=== PATIENT | female | born 1955 | race Caucasian/White ===

== ENCOUNTER 2018-10-22 17:13 | Inpatient (IN) | payer OTHER ==
[2018-10-22] MEDS ORDERED: IOPAMIDOL (ISOVUE 370) 100 ML BTL IV ONE (17:22)
[2018-10-22] MEDS ORDERED: PROPOFOL/EMULSION 1,000 MG/100 ML BOTTLE IV ONE ×2 (17:22→21:13)
[2018-10-22] MEDS ORDERED: POTASSIUM Cl (KCl) 10 MEQ/100 ML BAG IV ONE (17:23)
[2018-10-22] MEDS ORDERED: MANNITOL 20% 100 GM/500 ML BAG IV ONE ×3 (17:33→18:18)
[2018-10-22 17:34] LABS: PLATELET COUNT 241 10^3/uL (150-400)
--- NOTE | 2018-10-22 17:43 | EDPHY ---
H & P Time Seen by Provider: 10/22/18 17:26 HPI/ROS: CHIEF COMPLAINT: Altered mental status HISTORY OF PRESENT ILLNESS: Patient is a 62-year-old female brought in the emergency department as a stroke alert. Per report, the patient was last talked to on the phone 11:45 a.m.. When the fikevine returned home at 1515, he found the patient unresponsive in the bathroom. 911 was called. EMS found the patient unresponsive with initial blood pressure in the "160s/100". O2 saturation was "90s". Patient was given Narcan with no change in symptoms. Patient was noted to have asymmetric pupils with dilated pupil on the right. The patient recently had a cardiac stent placed in September. She had been recovering well from that procedure. She was placed on Plavix. She has been having numerous bruises all over body. Patient's fiancee denies that she drinks alcohol uses any drugs. REVIEW OF SYSTEMS: Unable to obtain due the patient's mental status Past medical history: Includes coronary artery disease with stent placement Social history: Patient does not smoke, use drugs or alcohol. Physical Exam: Vitals noted GENERAL: Unresponsive. NPA and O PA present. HEENT: The patient has a dilated pupil on the right. This is unresponsive. Patient has blood coming out of the NPA.. NECK: Normal, supple. RESPIRATORY: Significantly coarse breath sounds on the right. No wheezing. No rales. No rhonchi.. CVS: Bradycardia into the 50s, no rubs, murmurs, or gallops. ABDOMEN: Soft, nontender, nondistended, no organomegaly. BACK: Normal to inspection, no CVA tenderness. SKIN: Normal color, no rash, warm, dry. No pallor. Patient has numerous bruises of different ages over her lower extremities and abdomen. EXTREMITIES: No pedal edema, no joint swelling. NEURO/PSYCH: Unresponsive. Patient is not moving any extremity to painful stimulus. Constitutional: Initial Vital Signs Heart Rate 81 10/22/18 17:45 Respiratory Rate 18 10/22/18 17:45 O2 Sat (%) 100 10/22/18 17:45 O2 Delivery Mode Ventilator O2 (L/minute) 100 Allergies/Adverse Reactions: No Known Allergies Allergy (Unverified 10/22/18 17:17) Home Medications: Medication Instructions Recorded Aspirin 10/22/18 Atorvastatin Calcium 10/22/18 Effient 10/22/18 Metoprolol Succinate 10/22/18 Nitroglycerin 10/22/18 Plavix 10/22/18 Medical Decision Making - Diagnostics Imaging Results: Imaging Impressions Head CT 10/22/18 17:18 Impression: Large right frontoparietal intraparenchymal hemorrhage with 1.8 cm right to left midline shift. Findings discussed with Camille Orosco MD on October 22, 2018 at 5:35 p.m. Chest X-Ray 10/22/18 17:27 Impression: Endotracheal and NG tubes in good position with no acute findings. Procedures: RSI: Indication for the procedure was altered mental status. The patient was preoxygenated with 100% oxygen by face mask. The patient was sedated with etomidate and paralyzed with succinylcholine. The patient was orally endotracheally intubated under video laryngoscopy with a 7.0 ETT. Tracheal intubation was confirmed with misting on the tube; breath sounds were auscultated equally bilaterally; appropriate color change with [place] [employer] CO2 detector, capnography waveform is appropriate, oxygen saturation after procedure is [95 ]. Chest X-ray shows ETT in good position. The procedure was performed by myself. ED Course/Re-evaluation: In the emergency department I met EMS on arrival. I took report from the carpenter refrigerator. The patient was brought into room 2 because she was not stable. After my initial evaluation I felt the patient needed airway protection. Blood was coming out of the NPA. The monitor was having difficulty assessing O2 saturation. The probe was switched to her ear and subsequently to other hand. Patient was intubated with a 7.0 ET tube by video laryngoscopy without complication. The patient was given Versed 1 mg IV and fentanyl 100 mcg IV for sedation and pain control. The patient was placed on the ventilator. Patient's i-STAT was notable for low potassium. Potassium supplementation was given IV. Please refer the nursing note. Nursing staff was instructed to give potassium via OG when placed. Patient was taking to CT scanner. I went with the patient. While being transferred to the table the patient was noted to become bradycardic. With the patient's dilated pupil and presentation I was concerned with increased intracranial pressure. Mannitol 100 g IV was ordered and started the in the CT scanner. While mannitol was being obtained the patient was given atropine 0.5 mg IV. The patient has a large intracranial hemorrhage noted on CT imaging. Please refer the radiologist's report. Dr. Baxter was in the radiology suite with me. Head of bed was raised to 30 degrees. The patient was brought back to the emergency department. NG tube was placed. Schofiled catheter was placed. ABG was obtained. Platelets were ordered. Patient was placed on a propofol drip. Propofol drip was titrated. I discussed the case with Dr. Enrique. He did not want TXA at this time. 1804: Discussed case with Dr. Cao from the hospitalist service. 1824: I discussed the case with Dr. Enrique. He states he is taking the patient to the operating room Dr. Enrique requested 2 units of packed red blood cells be ordered for type and transfusion. He did not want a type and screen. I entered the order at his request. 18 30: Blood gas is still pending. I discussed this with the anesthesiologist. Differential Diagnosis: My differential includes but not limited to ischemic stroke, hemorrhagic stroke , dissection, aneurysm, electrolyte abnormality, sugar abnormality, drug overdose, subdural hematoma, epidural hematoma Critical Care Time: Patient required 45 min of critical care time. This was exclusive of any unbundled procedure. This was due the patient's presentation, altered mental status, time spent at the bedside, discussion with the family, consultation with Neurosurgery and Internal Medicine. Patient received platelets, propofol, and mannitol. - Data Points Laboratory Results: Laboratory Results 10/22/18 17:23 10/22/18 17:23 10/22/18 10/22/18 10/22/18 18:06 17:52 17:23 WBC RBC Hgb POC Hgb Hct POC Hct MCV MCH MCHC RDW Plt Count MPV Neut % (Auto) Lymph % (Auto) [place] % (Auto) Eos % (Auto) Baso % (Auto) Nucleat RBC Rel Count Absolute Neuts (auto) Absolute Lymphs (auto) Absolute Monos (auto) Absolute Eos (auto) Absolute Basos (auto) Absolute Nucleated RBC Immature Gran % Immature Gran # PT INR APTT Puncture Site Pending pCO2 Pending pO2 Pending Total CO2 Pending ABG pH Pending ABG HCO3 Pending ABG O2 Saturation Pending ABG Base Excess Pending POC Sodium Sodium 139 mEq/L mEq/L (135-145) POC Potassium Potassium 3.0 mEq/L L mEq/L (3.5-5.2) POC Chloride Chloride 106 mEq/L mEq/L (97-110) Carbon Dioxide 19 mEq/l L mEq/l (22-31) POC Total CO2 Anion Gap 14 mEq/L mEq/L (6-14) POC BUN BUN 15 mg/dL mg/dL (7-23) Creatinine 0.7 mg/dL mg/dL (0.6-1.0) POC Creatinine Estimated GFR > 60 Glucose 183 mg/dL H mg/dL (70-100) POC Glucose Calcium 9.0 mg/dL mg/dL (8.5-10.4) POC Troponin I Patient ABO/Rh O NEGATIVE Antibody Screen Pending Crossmatch IS Only See Detail Platelet Orders Status READY 10/22/18 10/22/18 10/22/18 17:23 17:23 17:21 WBC 10.32 10^3/uL H 10^3/uL (3.80-9.50) RBC 3.99 10^6/uL L 10^6/uL (4.18-5.33) Hgb 12.9 g/dL g/dL (12.6-16.3) POC Hgb 12.6 gm/dL gm/dL (12.6-16.3) Hct 38.4 % % (38.0-47.0) POC Hct 37 % L % (38-47) MCV 96.2 fL fL (81.5-99.8) MCH 32.3 pg pg (27.9-34.1) MCHC 33.6 g/dL g/dL (32.4-36.7) RDW 13.2 % % (11.5-15.2) Plt Count 241 10^3/uL 10^3/uL (150-400) MPV 9.5 fL fL (8.7-11.7) Neut % (Auto) 57.0 % % (39.3-74.2) Lymph % (Auto) 30.4 % % (15.0-45.0) [place] % (Auto) 8.4 % % (4.5-13.0) Eos % (Auto) 2.8 % % (0.6-7.6) Baso % (Auto) 1.0 % % (0.3-1.7) Nucleat RBC Rel Count 0.0 % % (0.0-0.2) Absolute Neuts (auto) 5.88 10^3/uL 10^3/uL (1.70-6.50) Absolute Lymphs (auto) 3.14 10^3/uL H 10^3/uL (1.00-3.00) Absolute Monos (auto) 0.87 10^3/uL H 10^3/uL (0.30-0.80) Absolute Eos (auto) 0.29 10^3/uL 10^3/uL (0.03-0.40) Absolute Basos (auto) 0.10 10^3/uL 10^3/uL (0.02-0.10) Absolute Nucleated RBC 0.00 10^3/uL 10^3/uL (0-0.01) Immature Gran % 0.4 % % (0.0-1.1) Immature Gran # 0.04 10^3/uL 10^3/uL (0.00-0.10) PT 12.5 SEC SEC (12.0-15.0) INR 0.97 (0.83-1.16) APTT 25.8 SEC SEC (23.0-38.0) Puncture Site pCO2 pO2 Total CO2 ABG pH ABG HCO3 ABG O2 Saturation ABG Base Excess POC Sodium 143 mEq/L mEq/L (135-145) Sodium POC Potassium 2.8 mEq/L L mEq/L (3.3-5.0) Potassium POC Chloride 106 mEq/L mEq/L (97-110) Chloride Carbon Dioxide POC Total CO2 21 mEq/L L mEq/L (22-31) Anion Gap POC BUN 15 mg/dL mg/dL (7-23) BUN Creatinine POC Creatinine 0.7 mg/dL mg/dL (0.6-1.0) Estimated GFR Glucose POC Glucose 197 mg/dL H mg/dL (70-100) Calcium POC Troponin I Patient ABO/Rh Antibody Screen Crossmatch IS Only Platelet Orders Status 10/22/18 17:18 WBC RBC Hgb POC Hgb Hct POC Hct MCV MCH MCHC RDW Plt Count MPV Neut % (Auto) Lymph % (Auto) [place] % (Auto) Eos % (Auto) Baso % (Auto) Nucleat RBC Rel Count Absolute Neuts (auto) Absolute Lymphs (auto) Absolute Monos (auto) Absolute Eos (auto) Absolute Basos (auto) Absolute Nucleated RBC Immature Gran % Immature Gran # PT INR APTT Puncture Site pCO2 pO2 Total CO2 ABG pH ABG HCO3 ABG O2 Saturation ABG Base Excess POC Sodium Sodium POC Potassium Potassium POC Chloride Chloride Carbon Dioxide POC Total CO2 Anion Gap POC BUN BUN Creatinine POC Creatinine Estimated GFR Glucose POC Glucose Calcium POC Troponin I 0.02 ng/mL ng/mL (0.00-0.08) Patient ABO/Rh Antibody Screen Crossmatch IS Only Platelet Orders Status Medications Given: Potassium Chloride (Potassium Cl 10 Meq (Premix)) 100 mls @ 100 mls/hr IV EDNOW ONE Stop: 10/22/18 19:02 Last Admin: 10/22/18 17:30 Dose: 100 mls Discontinued Medications Etomidate (Etomidate) 15 mg IVP EDNOW ONE Stop: 10/22/18 18:04 Last Admin: 10/22/18 17:15 Dose: 15 mg Fentanyl (Sublimaze) 100 mcg IVP EDNOW ONE Stop: 10/22/18 18:05 Last Admin: 10/22/18 17:30 Dose: 100 mcg Mannitol (Mannitol 20% (Premix)) 100 gm IV EDNOW ONE Stop: 10/22/18 17:38 Last Admin: 10/22/18 17:34 Dose: 100 gm Midazolam HCl (Versed) 1 mg IVP EDNOW ONE Stop: 10/22/18 18:05 Last Admin: 10/22/18 17:30 Dose: 1 mg Potassium Chloride (Potassium Chloride Oral Liquid) 20 meq PO EDNOW ONE Stop: 10/22/18 17:52 Last Admin: 10/22/18 18:01 Dose: 20 meq Succinylcholine Chloride (Quelicin) 100 mg IVP EDNOW ONE Stop: 10/22/18 18:04 Last Admin: 10/22/18 17:18 Dose: 100 mg Point of Care Test Results: Chemistry 10/22/18 10/22/18 17:21 17:18 POC Sodium 143 mEq/L mEq/L (135-145) POC Potassium 2.8 mEq/L L mEq/L (3.3-5.0) POC Chloride 106 mEq/L mEq/L (97-110) POC Total CO2 21 mEq/L L mEq/L (22-31) POC BUN 15 mg/dL mg/dL (7-23) POC Creatinine 0.7 mg/dL mg/dL (0.6-1.0) POC Glucose 197 mg/dL H mg/dL (70-100) POC Troponin I 0.02 ng/mL ng/mL (0.00-0.08) ISTAT H&H 10/22/18 17:21 POC Hgb 12.6 gm/dL gm/dL (12.6-16.3) POC Hct 37 % L % (38-47) Departure - Departure Disposition: [facility] Inpatient Acute Clinical Impression: Hemorrhagic stroke Condition: Critical
[2018-10-22 17:44] LABS: INR 0.97 (0.83-1.16); PROTIME(PATIENT) 12.5 SEC (12.0-15.0)
[2018-10-22] MEDS ORDERED: POTASSIUM CL 20 MEQ/15 ML UDCUP PO ONE (17:51)
[2018-10-22] MEDS ORDERED: SUCCINYLCHOLINE CHLORIDE 200 MG/10 ML SYR IVP ONE (18:03)
[2018-10-22] MEDS ORDERED: POTASSIUM Cl (KCl) 100 ML IV ONE (18:03)
[2018-10-22] MEDS ORDERED: ETOMIDATE 40 MG/20 ML INJ IVP ONE (18:03)
[2018-10-22] MEDS ORDERED: MIDAZOLAM 2 MG/2 ML VIAL IVP ONE (18:04)
[2018-10-22] MEDS ORDERED: fentaNYL 100 MCG/2 ML INJ IVP ONE (18:04)
[2018-10-22] MEDS ORDERED: ATROPINE SULFATE 1 MG/10 ML SYR IVP ONE (18:12)
[2018-10-22] MEDS ORDERED: BACITRACIN ZINC 0.5 OZ OINTTUBE TP ONE (18:17)
[2018-10-22] MEDS ORDERED: CHLORHEXIDINE GLUC HIBICLENS 118 ML BTL TP ONE (18:17)
[2018-10-22] MEDS ORDERED: THROMBIN (BOVINE) 5,000 UNIT VIAL TP ONE (18:17)
[2018-10-22] MEDS ORDERED: AVITENE POWDER 1 GM JAR TP ONE (18:18)
[2018-10-22] MEDS ORDERED: GENTAMICIN SULFATE 80 MG/2 ML VIAL ONE ×2 (18:18→18:35)
[2018-10-22] MEDS ORDERED: LIDO/EPI 1% **for epidural** 30 ML SDV ONE (18:19)
[2018-10-22] MEDS ORDERED: POVIDONE-IODINE 30 GM OINTTUBE TP ONE (18:19)
[2018-10-22] MEDS ORDERED: fentaNYL 250 MCG/5 ML INJ ONE (18:27)
[2018-10-22] MEDS ORDERED: PROPOFOL 200 MG/20 ML VIAL ONE (18:27)
[2018-10-22] MEDS ORDERED: ROCURONIUM 100 MG/10 ML VIAL ONE (18:27)
[2018-10-22] MEDS ORDERED: levETIRAcetam 1000MG/NACL 100 ML IV ONE (19:00)
[2018-10-22] MEDS ORDERED: THROMBIN (BOVINE) 20,000 UNIT VIAL TP ONE (19:08)
[2018-10-22] MEDS ORDERED: PHENYLEPHRINE HCL 100 MCG/ML SYR ONE ×3 (19:37→20:28)
[2018-10-22] MEDS ORDERED: ceFAZolin 1 GM VIAL ONE (19:37)
--- NOTE | 2018-10-22 19:54 | PDANEPAE ---
ANE History of Present Illness 63 y.o. found unresponsive by her fiance at home earlier today. She has a history of recent cardiac stent with plavix therapy. ANE Past Medical History Past Medical History: Due to her medical condition and the emergent need for life saving surgery, a very brief assessment was performed prior to bringing her to the OR. Her cardiac history and neurologic status being the two primary concerns. - Cardiovascular History Hx Coronary Artery / Peripheral Vascular Disease: Yes Cardiovascular History Comment: Cardic stent placed in September and patient has been on Plavix for zelda stent - Pulmonary History Hx Oxygen in Use at Home: No - Neurologic History Neurologic History Comment: Currently the patient is unresponsive with asymetric pupils. Intibated and sedated. Imaging consisitent with intrcranial hemmorhage ANE Review of Systems Review of Systems: ANE Patient History - Allergies Allergies/Adverse Reactions: No Known Allergies Allergy (Unverified 10/22/18 17:17) - Home Medications Home Medications: Aspirin 10/22/18 [Last Taken Unknown] Atorvastatin Calcium 10/22/18 [Last Taken Unknown] Effient 10/22/18 [Last Taken Unknown] Metoprolol Succinate 10/22/18 [Last Taken Unknown] Nitroglycerin 10/22/18 [Last Taken Unknown] Plavix 10/22/18 [Last Taken Unknown] - Anes Hx Hx Anesthesia Complications (with details): Unkonwn - Smoking Hx Smoking Status: Unknown if ever smoked ANE Labs/Vital Signs - Labs Result Diagrams: 10/22/18 17:23 10/22/18 17:23 - Vital Signs Blood Pressure: 169/110 Heart Rate: 95 Respiratory Rate: 20 O2 Sat (%): 100 Weight: 63 kg ANE Physical Exam - Airway Mallampati Score: Unable to assesss - Pulmonary Pulmonary: no rales or rhonchi, clear to auscultation - Cardiovascular Cardiovascular: regular rate and rhythym, no murmur, rub, or gallop - ASA Status ASA Status: V, E (Patient is intubated and sedated.) ANE Anesthesia Plan Anesthesia Plan: general endotracheal anesthesia Lines/Monitors: arterial line, central line (Central line placed after the case) Urgent/Emergent Case: Eric suarez completed preop but documented later for safe timely pt care
--- NOTE | 2018-10-22 19:57 | POSTANESTH ---
Post Anesthetic Evaluation Cardiovascular Status: Normal, Stable Respiratory Status: Requires Airway Assist Level of Consciousness/Mental Status: Unconscious Pain Control: Adequate, Prn Tx Ordered Nausea/Vomiting Control: Adequate, Prn Tx Ordered Complications Possibly Related to Anesthesia: None Noted (Patient unconscious and unable to participate in Post anesthesia eval. Unsure as to when she will regain consciousness.)
[2018-10-22] MEDS ORDERED: ROCURONIUM 50 MG/5 ML VIAL ONE (20:13)
[2018-10-22] MEDS ORDERED: PROPOFOL/EMULSION 500 MG/50 ML BOTTLE IV ONE (20:16)
--- NOTE | 2018-10-22 20:32 | POSTOPPROG ---
Post Op Note Date of Operation: 10/22/18 Surgeon: Aldo Enrique Astronomy Teacher: Óscar Anesthesia: GET(General Endotracheal) Pre-op Diagnosis: large, likely spontaneous, right sided IPH Post-op Diagnosis: same Indication: herniation of the brain Procedure: Right decompressive hemicraniectomy, evacuation of IPH, placement of EVD Findings: very swollen brain Inf/Abcess present in the surg proc area at time of surgery?: No Depth: Organ Space (brain) EBL: 100-500 Total fluids administered: per anesthesia Complications: none Bowel Protocol: No Clean Closure Performed: Yes Drains: Jesse Jarrell (EVD and subgaleal SUSANNE)
[2018-10-22] MEDS ORDERED: LACTULOSE 20 GM/30 ML UDCUP PO PRN (20:52)
[2018-10-22] MEDS ORDERED: POLYETHYLENE GLYCOL 3350 17 GM PKT PO PRN (20:52)
[2018-10-22] MEDS ORDERED: ACETAMINOPHEN 325 MG TAB PO PRN (20:52)
[2018-10-22] MEDS ORDERED: MAGNESIUM HYDROXIDE 30 ML UDCUP PO PRN (20:52)
[2018-10-22] MEDS ORDERED: BISACODYL 10 MG SUPP PR PRN (20:52)
[2018-10-22] MEDS ORDERED: MAG HYDROX/AL HYDROX/SIMETH 30 ML UDCUP PO PRN (20:52)
[2018-10-22] MEDS ORDERED: levETIRAcetam 500 MG TAB PO SCH (21:00)
[2018-10-22] MEDS ORDERED: SENNOSIDES/DOCUSATE SODIUM TAB PO SCH (21:00)
--- NOTE | 2018-10-22 21:03 | SOAPPROG ---
SOAP Progress Note Assessment/Plan: Assessment: POST OP CHECK Intubated sedated status post right hemicraniectomy Plan: CPM in ICU SUSANNE to bulb suction ventric per orders sedation per orders 10/22/18 21:02 10/22/18 21:33 Subjective: Eyes closed, intubated sedated Objective: Vital Signs Temp Pulse Resp BP Pulse Ox 35.1 C L 95 20 169/110 H 100 10/22/18 18:40 10/22/18 19:56 10/22/18 19:56 10/22/18 19:56 10/22/18 19:56 10/21/18 10/22/18 10/23/18 05:59 05:59 05:59 Intake Total 1130 Output Total 800 Balance 330 PT 12.5 SEC (12.0-15.0) 10/22/18 17:23 INR 0.97 (0.83-1.16) 10/22/18 17:23 Neuro: Right pupil 3mm, left 2mm No corneals, no gag Vitals: HR;72 BP: 91/55 O2:100% intubated ICD10 Worksheet Patient Problems: Problems Problem Status Onset Hemorrhagic stroke Acute
[2018-10-22] MEDS ORDERED: PHENYLEPHRINE HCL 50 MG in D5W 250 ML IV SCH (21:30)
--- NOTE | 2018-10-22 21:49 | GHP ---
[f rep st] HISTORY AND PHYSICAL DATE OF ADMISSION: 10/22/2018 CHIEF COMPLAINT: Consultation by Emergency Medicine for very large right temporal intraparenchymal h emorrhage with midline shift, uncal herniation and brainstem compression. HISTORY OF PRESENT ILLNESS: The patient is 63-year-old female. She was brought to the emergency dep artment as a stroke alert. Here at [facility], Dr. Orosco consulted me and [facility] minutes of being called. She was apparently last seen normal today at 11:45 in the orning. Her fiance returned home at approximately 3:15 in the afternoon and found her unresponsive i n the bathroom. There is no exact history of a trauma being reported. He called 911 and EMS arrived on the scene and found the patient's blood pressure to be 160/100 with oxygen saturation in the 90s. She was brought to the emergency room urgently and I saw her there. S he does have a history of recent cardiac stent. She was on Effient, but was having bruising, and was changed to Plavix. Several units of platelets are corporate relations manager currently. Head CT was performed and a v corby large right-sided temporal and deep hemorrhage was noted with midline shift and brainstem nasir carlos. I counseled the patient's fiance and her ex-, who is a strip deburrer, and both felt that she would want any measures that may save her life. We moved urgently to the operating room, which had been alerted prior to my arrival. PAST MEDICAL/SURGICAL HISTORY: Per HPI. SOCIAL HISTORY: Per the patient's fiance, she does not smoke or use drugs or alcohol. CODE STATUS: Full. ALLERGIES: No known drug allergies. FAMILY HISTORY: Reviewed but noncontributory. Patient cannot provide her own history, given her com atose state. REVIEW OF SYSTEMS: Ten points could not be reviewed because the patient is comatose. PHYSICAL EXAM: VITAL SIGNS: Heart rate 81, respiratory rate 18, saturating 100% while intubated. B lood pressure 160/100 upon arrival. NEUROLOGIC: The patient is intubated and off sedation, she does not open eyes. She has flexor posturing. She has a right pupil that is nonreactive and larger than the left pupil. She has a downward fixed gaze. She has positive corneal reflexes. She has a posit mikayla cough and a gag. Her GCS is a 5T. LABORATORY DATA: White blood cell count is 10.3, hemoglobin 12.9, platelet count 241. INR 0.97, PTT 25.8. Sodium 139, potassium 3.0, BUN 15, creatinine 0.7, glucose 197. Troponin 0.02. REVIEW OF IMAGING: I reviewed the patient's noncontrasted head CT. It shows a very large right temp oral hematoma with extension into the deep tissues of the basal ganglia. She has significant shift o f approximately 1 cm. She has signs of uncal herniation from right to left. IMPRESSION AND PLAN: The patient is a 63-year-old female with a history of coronary artery disease a nd a stent, who is on Plavix. She was found down at home by her fiance with a Kersey coma scale of 5T with flexor posturing. She has a very large right temporal hematoma with extension into the deep tissues of the basal ganglia, with shift and brainstem compression. I discussed the case with her fi kevin and ex-, who are making her medical decisions currently. They believe that she would wan t everything done to save her life. Platelets were ordered stat and we are proceeding to the operati ng room for an emergent decompressive hemicraniectomy on the right and evacuation of the hematoma. I was there within 30 minutes of being called. /[id number]/MODL
--- NOTE | 2018-10-22 21:55 | PDHOSCONS ---
History and Physical - Chief Complaint ams - History of Present Illness 63 yo F with CAD sp stent to RCA on 10/20, prior stent to LAD in September, on plavix and aspirin currently (previously on prasugrel which was not tolerated) admitted as a stroke alert from home. She was last seen normal at 1145 by her fiance and when he returned home at approximately 315 pm she was found unresponsive in the bathroom. It is not clear that any trauma occurred. In the ER she was noted to be completely unresponsive with a blown right pupil, she was emergently intubated in the ER then taken to head CT where she was found to have a large right temporal intraparenchymal hemorrhage and herniation. Patients leighton and ex were met by NSG and decision was made to go to surgery for attempt at improving her situation, though it was made clear that her prognosis was grim. Patient intubated and sedated at the time of my evaluation and therefore history obtained from ER doctor and chart review as well as family present at bedside. History Information - Allergies/Home Medication List Allergies/Adverse Reactions: No Known Allergies Allergy (Unverified 10/22/18 17:17) Home Medications: Aspirin 10/22/18 [Last Taken Unknown] Atorvastatin Calcium 10/22/18 [Last Taken Unknown] Effient 10/22/18 [Last Taken Unknown] Metoprolol Succinate 10/22/18 [Last Taken Unknown] Nitroglycerin 10/22/18 [Last Taken Unknown] Plavix 10/22/18 [Last Taken Unknown] I have personally reviewed and updated: family history, medical history, social history, surgical history - Past Medical History coronary artery disease (s/p stent x 2, most recent on 10/20, also in september), hypertension, hyperlipidemia - Surgical History Reports: coronary stent Additional surgical history: bunionectomy. knee surgery - Family History Positive for: male first degree with history of premature CAD - Social History Smoking Status: Unknown if ever smoked Alcohol Use: Occasionally Drug Use: None Additional social history: engaged, has 2 children Review of Systems Review of Systems: unobtainable due to mental status Physical Exam Physical Exam: Temp Pulse Resp BP Pulse Ox 35.1 C L 95 20 169/110 H 100 10/22/18 18:40 10/22/18 19:56 10/22/18 19:56 10/22/18 19:56 10/22/18 19:56 Constitutional: other (intubated and sedated) Eyes: other (right pupil larger than left, non responsive), No PERRL Ears, Nose, Mouth, Throat: other (ett in place) Cardiovascular: no murmur, rub, or gallop, tachycardia, No edema Respiratory: no rales or rhonchi, bronchial breath sounds Gastrointestinal: normoactive bowel sounds, soft, non-tender abdomen Genitourinary: no bladder tenderness Skin: warm, normal color Musculoskeletal: other (sedated, not moving) Neurologic: other (no spontaneous movement, does have a gag), No CN II-XII Intact (right pupil enlarged, non responsive) Lab Data & Imaging Review 10/22/18 17:23 10/22/18 17: WBC 10.32 10^3/uL (3.80-9.50) H 10/22/18 17: RBC 3.99 10^6/uL (4.18-5.33) L 10/22/18 17: Hgb 12.9 g/dL (12.6-16.3) 10/22/18 17: POC Hgb 12.6 gm/dL (12.6-16.3) 10/22/18 17:21 Hct 38.4 % (38.0-47.0) 10/22/18 17: POC Hct 37 % (38-47) L 10/22/18 17:21 MCV 96.2 fL (81.5-99.8) 10/22/18 17: MCH 32.3 pg (27.9-34.1) 10/22/18 17: MCHC 33.6 g/dL (32.4-36.7) 10/22/18 17: RDW 13.2 % (11.5-15.2) 10/22/18 17: Plt Count 241 10^3/uL (150-400) 10/22/18 17: MPV 9.5 fL (8.7-11.7) 10/22/18 17:23 Neut % (Auto) 57.0 % (39.3-74.2) 10/22/18 17: Lymph % (Auto) 30.4 % (15.0-45.0) 10/22/18 17:23 [place] % (Auto) 8.4 % (4.5-13.0) 10/22/18 17: Eos % (Auto) 2.8 % (0.6-7.6) 10/22/18 17: Baso % (Auto) 1.0 % (0.3-1.7) 10/22/18 17: Nucleat RBC Rel Count 0.0 % (0.0-0.2) 10/22/18 17: Absolute Neuts (auto) 5.88 10^3/uL (1.70-6.50) 10/22/18 17: Absolute Lymphs (auto) 3.14 10^3/uL (1.00-3.00) H 10/22/18 17: Absolute Monos (auto) 0.87 10^3/uL (0.30-0.80) H 10/22/18 17: Absolute Eos (auto) 0.29 10^3/uL (0.03-0.40) 10/22/18 17: Absolute Basos (auto) 0.10 10^3/uL (0.02-0.10) 10/22/18 17: Absolute Nucleated RBC 0.00 10^3/uL (0-0.01) 10/22/18 17: Immature Gran % 0.4 % (0.0-1.1) 10/22/18 17: Immature Gran # 0.04 10^3/uL (0.00-0.10) 10/22/18 17: PT 12.5 SEC (12.0-15.0) 10/22/18 17: INR 0.97 (0.83-1.16) 10/22/18 17: APTT 25.8 SEC (23.0-38.0) 10/22/18 17:23 Puncture Site LEFT RADIAL 10/22/18 18:06 Patient Temperature 33.1 DEGREES 10/22/18 18:06 pCO2 34 mmHg (34-38) 10/22/18 18:06 pO2 210 mmHg (65-75) H 10/22/18 18:06 Total CO2 19 mEq/L (23-27) L 10/22/18 18:06 ABG pH 7.31 (7.35-7.45) L 10/22/18 18:06 ABG PO2/FiO2 Ratio 300 RATIO 10/22/18 18:06 ABG HCO3 18 mEq/L (22-26) L 10/22/18 18:06 ABG O2 Saturation 99 % (92-95) H 10/22/18 18:06 ABG Base Excess -8.4 mEq/L (-2.5-2.5) L 10/22/18 18:06 O2 Concentration % 70 % (0-100) 10/22/18 18:06 Respiration Rate 12 10/22/18 18:06 Set Respiration Rate 12 10/22/18 18:06 Assist Control YES 10/22/18 18:06 Tidal Volume 400 10/22/18 18:06 PEEP 5 10/22/18 18:06 POC Sodium 143 mEq/L (135-145) 10/22/18 17:21 Sodium 139 mEq/L (135-145) 10/22/18 17:23 POC Potassium 2.8 mEq/L (3.3-5.0) L 10/22/18 17:21 Potassium 3.0 mEq/L (3.5-5.2) L 10/22/18 17:23 POC Chloride 106 mEq/L (97-110) 10/22/18 17:21 Chloride 106 mEq/L (97-110) 10/22/18 17:23 Carbon Dioxide 19 mEq/l (22-31) L 10/22/18 17:23 POC Total CO2 21 mEq/L (22-31) L 10/22/18 17:21 Anion Gap 14 mEq/L (6-14) 10/22/18 17:23 POC BUN 15 mg/dL (7-23) 10/22/18 17:21 BUN 15 mg/dL (7-23) 10/22/18 17:23 Creatinine 0.7 mg/dL (0.6-1.0) 10/22/18 17:23 POC Creatinine 0.7 mg/dL (0.6-1.0) 10/22/18 17:21 Estimated GFR > 60 10/22/18 17:23 Glucose 183 mg/dL (70-100) H 10/22/18 17:23 POC Glucose 197 mg/dL (70-100) H 10/22/18 17:21 Calcium 9.0 mg/dL (8.5-10.4) 10/22/18 17:23 POC Troponin I 0.02 ng/mL (0.00-0.08) 10/22/18 17:18 Patient ABO/Rh O NEGATIVE 10/22/18 17:52 Antibody Screen NEGATIVE 10/22/18 17:52 Crossmatch IS Only See Detail 10/22/18 17:52 Platelet Orders Status READY 10/22/18 17:52 Visualized and Interpreted Chest x-ray results: Yes Chest X-Ray results: other (ng/ett in place, atelectasis) Visualized and Interpreted imaging results: Yes Interpretation: head CT:large right temporal intraparenchymal hemorrhage with mid line shift, uncal herniation adn brainstem compression Visualized and Interpreted EKG results: Yes EKG Interpretation: Positive for: normal sinsus rhythm Assessment & Plan Assessment: Hemorrhagic stroke (Acute) 63 yo F with PMH of CAD s/p recent stent x 2 presenting with AMS found to have large intraparenchymal bleed # hemorrhagic CVA: large right temporal bleed in the setting of being on plavix and asa, taken emergently to OR for right hemicraniectomy and attempted decompression. Discussed with NSG, prognosis grim. Admit to ICU with ventric in place, 3% NaCl drip for therapeutic hypernatremia, goal sbp < 140 and nicardipine drip ordered, keppra for seizure ppx. # brain herniation/brainstem compression: in setting of above, treatment as above # CAD: s/p stent to LAD in September and to RCA 2 days ago, on asa/plavix POSTMASTER RELIEF which will need to be held given acute hemorrhage # HLD: on statin prior to admit # metabolic encephalopathy: 2/2 massive hemorrhagic stroke as above, patient found unresponsive and remains so # acute respiratory failure: due to massive CVA and inability to protect airway , now intubated, will monitor # hyperglycemia: likely stress response, will add SSI # IP status, very high risk requiring ICU level care and prognosis poor, an additional 35 min critical care time spent in evaluation of labs/imaging and coordination of care with other MDs # FC
[2018-10-22] MEDS: fentaNYL/NACL 100 ML IV SCH (21:58)
[2018-10-22] MEDS: FAMOTIDINE 20 MG/NACL 50 ML IV SCH (22:09)
[2018-10-22 22:12] LABS: INR 1.18 (0.83-1.16); PROTIME(PATIENT) 14.5 SEC (12.0-15.0)
--- NOTE | 2018-10-22 22:13 | CPEKG ---
Test Reason : OPEN Blood Pressure : / mmHG Vent. Rate : 081 BPM Atrial Rate : 081 BPM P-R Int : 229 ms QRS Dur : 092 ms QT Int : 438 ms P-R-T Axes : 076 017 037 degrees QTc Int : 509 ms Sinus rhythm Prolonged HI interval Prolonged QT interval Confirmed by Camille Orosco ([id number]) on 10/22/2018 10:12:33 PM Referred By: Camille Orosco Confirmed By:Camille Orosco
[2018-10-22] MEDS ORDERED: DOPamine/DEXTROSE 400 MG/250 ML BAG IV ONE (22:27)
[2018-10-22] MEDS: SODIUM Cl 3% 500 ML IV SCH (22:30)
[2018-10-22] MEDS: NS W/ 20 KCl/L 1,000 ML IV SCH (22:32)
[2018-10-22 23:00] LABS: PLATELET COUNT 245 10^3/uL (150-400)
[2018-10-22] MEDS ORDERED: LORazepam 2 MG/ML INJ ONE (23:18)
[2018-10-22] MEDS ORDERED: DIAZEPAM 10 MG/2 ML SYR ONE (23:19)
[2018-10-22] MEDS ORDERED: DIAZEPAM 10 MG/2 ML SYR IVP ONE (23:30)
[2018-10-22] MEDS: PETROLAT,WHT/MIN OIL/SOD CHL 3.5 GM OPHT.OINT EACHEYE SCH (23:36)
[2018-10-22] MEDS: PROPOFOL/EMULSION 100 ML IV SCH (23:37)
[2018-10-23] MEDS: CEFUROXIME 1,500 MG in NS 50 ML IV SCH ×2 (03:35→12:10)
[2018-10-23] MEDS: PHENYLEPHRINE HCL 50 MG in NS 250 ML IV SCH ×3 (04:02→13:57)
[2018-10-23 04:33] LABS: PLATELET COUNT 313 10^3/uL (150-400)
[2018-10-23] MEDS: PETROLAT,WHT/MIN OIL/SOD CHL 3.5 GM OPHT.OINT EACHEYE SCH ×4 (05:39→21:09)
[2018-10-23] MEDS ORDERED: levETIRAcetam 500MG/NACL 100 ML IV SCH (06:00)
--- NOTE | 2018-10-23 07:45 | PDMN ---
Medical Necessity Medical necessity: Pt meets IP criteria as of 10/22/2018 per and MCG M-85 ( Stroke: Hemorrhagic); est los > 2 mn for ongoing tx and management of acute hemorrhagic stroke; requiring R hemicraniectomy, intubation, ventric, ICU level care and close neuro and VS monitoring.
--- NOTE | 2018-10-23 08:00 | SOAPPROG ---
SOAP Progress Note Assessment/Plan: Assessment: Intubated sedated status post right hemicraniectomy POD #1 Repeat CTH shows that she has rebled into the operative bed, but mass effect is slightly improved Plan: I spoike with patient's fiance regarding CT results this AM. He is aware of the grim prognosis. CPM SUSANNE to bulb suction Continue Ventric D/W Dr Enrique 10/23/18 07:59 Subjective: intubated, sedated. Objective: Vital Signs Temp Pulse Resp BP Pulse Ox 38.3 C 86 21 H 125/69 H 99 10/23/18 07:15 10/23/18 07:15 10/23/18 07:15 10/23/18 07:15 10/23/18 07:15 Laboratory Results 10/23/18 04:00 10/23/18 04:00 10/22/18 10/23/18 10/24/18 05:59 05:59 05:59 Intake Total 2729 Output Total 2797 Balance -68 PT 14.5 SEC (12.0-15.0) 10/22/18 21:45 INR 1.18 (0.83-1.16) H 10/22/18 21:45 Neuro (off sedation): + corneals and +cough with suctioning Withdraws in bilateral upper ext to paiful stim Toes upgoing to painful stim Pupils 3mm on right, 2mm on left SUSANNE: 150 ICP: 10 ventric draining approx 10 ml/hr, bloody ICD10 Worksheet Patient Problems: Problems Problem Status Onset Hemorrhagic stroke Acute
[2018-10-23] MEDS: FAMOTIDINE 20 MG/NACL 50 ML IV SCH ×2 (08:22→20:56)
[2018-10-23] MEDS: NS W/ 20 KCl/L 1,000 ML IV SCH ×2 (08:22→18:31)
[2018-10-23] MEDS: levETIRAcetam 500MG/NACL 100 ML IV SCH ×2 (08:22→20:56)
[2018-10-23] MEDS: SODIUM Cl 3% 500 ML IV SCH ×2 (09:03→19:49)
[2018-10-23] MEDS ORDERED: D50W 25 GM/50 ML SYR IVP PRN (09:10)
--- NOTE | 2018-10-23 11:11 | ASMTCMCOM ---
CM Note CM Note Notes: Entry from 10/22/18 into [employer] Notes due to [employer] being down last night: "Family assisted with various emotional support, provided updates throughout the pt's ED visit and while the pt was in the OR. Pt's direct family includes: Fiance: Frank Monreal ([phone]): lives w/pt and their wedding is set for 11/05/18; Frank was the person who found the pt Oldest son: Erwin Badillo (Cody) ([phone]): regulatory attorney, lives in [place] w/ and young daughter; Derick has a good relationship with Frank. Youngest son: Daniel Badillo ([phone]): lives in [place]. Daniel is in early recovery and has a strained relationship with Frank. Ex-: Carlos Badillo ([phone]): lives locally and is a visual coordinator; he arrived to [facility] and was involved with helping Frank decide to have pt go to the OR w/neurosurgery. Sister: Genie Fernandez ([phone]): lives locally and is very close to the pt. Patient arrived to [facility] w/ Wesley, daughter and RAMÓN Sister: Viv Hamlin ([phone]): lives in [place]; Frank and Genie contacted her and provided updates. Brother: Osvaldo Donald ([phone]): lives in [place], [place] area; Genie has contacted him and provided updates CM discussed with all above family members that they may need to agree on a Proxy Decision Maker due to Frank and family not being aware of any [facility] paperwork or Advance Directive having been completed in the past. Frank said he thinks the has a Living Will but does not have a copy; he has reached out to their estate retail associate to see if she has a copy but has not heard back. CM will also followup w/Luis, Rodney Cabrera, etc. to see if there is anything in their systems. Various other family members including Frank's father, sister, [id number], etc. also arrived to [facility] to provide support to Frank and family. [place] had the on-call Rodent Control Worker called; Hosea arrived and helped provide additional support, prayers, helped answer questions, provided updates, etc. CM had a comfort cart put together and brought to the family in the OR waiting area due to the cafeteria being closed and the grab-n-go kiosk being out of bottled water. CM's usual documentation program, Allscripts, is down at this time. CM to put in a more detailed CM Report once Allscripts is operating again and will followup tomorrow morning." Initialized on 10/22/18 21:20 - END OF NOTE Date Signed: 10/23/2018 11:10 AM Electronically Signed By:Pricila Norwood RN
[2018-10-23] MEDS: PROPOFOL/EMULSION 100 ML IV SCH (12:09)
[2018-10-23] MEDS: SENNOSIDES 17.6 MG/10 ML UDL TUBE SCH ×2 (12:10→20:56)
[2018-10-23] MEDS: INSULIN REGULAR HUMAN 100 UNIT/ML UNIT SC SCH ×2 (12:10→18:17)
--- NOTE | 2018-10-23 13:39 | HOSPPROG ---
Hospitalist Progress Note Assessment/Plan: 63 yo F with PMH of CAD s/p recent stent x 2 presenting with AMS found to have large intraparenchymal bleed. #IPH w/midline shift and herniation s/p R hemicraniectomy - EVD and SUSANNE in place - Repeat CT shows rebleed into operative bed - 3% NaCl for therapeutic hyperNa, goal SBP<140 #Seizure - Now on keppra #Hypotension - On dopamine and phenylephrine #Acute respiratory failure - Intubated for airway protection, pulm managing vent - Propofol/fentanyl #CAD: RCA stent 10/20/18, LAD stent 09/2018. - Holding anti-platelet agents #Acute blood loss anemia - Monitor #Hyperglycemia: stress response - SSI #Prognosis: grim. neurosurg discussing with family this afternoon Code: full Subjective: Unresponsive. Family distraught. Objective: Vital Signs Temp Pulse Resp BP Pulse Ox 38.0 C 74 17 116/60 99 10/23/18 13:00 10/23/18 13:00 10/23/18 13:00 10/23/18 13:00 10/23/18 13:00 Laboratory Results 10/23/18 04:00 10/23/18 10:00 10/22/18 10/23/18 10/24/18 05:59 05:59 05:59 Intake Total 2729 Output Total 2797 1514 Balance -68 -1514 PT 14.5 SEC (12.0-15.0) 10/22/18 21:45 INR 1.18 (0.83-1.16) H 10/22/18 21:45 - Physical Exam Constitutional: other (sedate) Eyes: other (pupils fixed) Cardiovascular: regular rate and rhythym, no murmur, rub, or gallop Respiratory: reduced air movement (bases), rhonchi (bases) Gastrointestinal: normoactive bowel sounds, soft, non-tender abdomen, no palpable masses Genitourinary: buckner in urethra Neurologic: other (unresponsive to verbal/tactile stimuli) ICD10 Worksheet Patient Problems: Problems Problem Status Onset Hemorrhagic stroke Acute
[2018-10-23] MEDS: ERTAPENEM 1 GM in NS 100 ML IV SCH (13:57)
--- NOTE | 2018-10-23 15:54 | GCON ---
[f rep st] CONSULTATION DATE OF CONSULTATION: 10/23/2018 REASON FOR CONSULTATION: Intensive care unit evaluation and management following a large intraparenc hymal hemorrhage. The patient is in the intensive care unit on the ventilator. HISTORY: The patient is a 63-year-old with a history of coronary artery disease. She had recent car diac stenting and was on anti-platelet agents. She was found down by her fiance after being last see n 3-4 hours earlier. He found her unresponsive in the bathroom. There was no clear evidence of trau ma. She was brought to the emergency department where a large right temporal intraparenchymal hemorr samara with shift and herniation of the brainstem was found. She had a blown pupil initially. Neurosu rgcorby was consulted. Dr. Enrique took her emergently to the operating room. A hemicraniectomy was pe rformed with evacuation of her blood. Platelets were given prior to the procedure. She was returned to the intensive care unit on the ventilator. She was unresponsive initially and has remained unres ponsive, with a [place] Coma Scale at best being 5. Postoperatively, she is well postured to deep pa inful stimulation. Pupil is no longer blown. CT scan of the head postoperatively has shown evidence of rebleed. However, the shift is less and herniation is no longer present. Neurologic prognosis i s felt to be poor. PAST MEDICAL HISTORY: Remarkable for coronary artery disease, possibly systemic hypertension, and hy perlipidemia. MEDICATIONS: Plavix, possibly nitroglycerin, metoprolol, aspirin and Lipitor. She was recently on E ffient. DRUG ALLERGIES: No known drug allergies. SOCIAL HISTORY: The patient is . She has 2 children. She is engaged and was to be in the near future. Her ex- and her fiancee are both here. Other family members including he r son, sister, etc. have been in. Tobacco and alcohol are negative. FAMILY HISTORY: Noncontributory. REVIEW OF SYSTEMS: Unobtainable. PHYSICAL EXAMINATION: GENERAL: Reveals a critically ill woman who is unresponsive on the ventilator . The head is wrapped postoperatively with blood evident in the wrapping/dressings. SUSANNE drain and ve ntriculostomy are both in place. VITAL SIGNS: Blood pressure is 120/65, heart rate is 80 with sinus rhythm on the monitor on 40% FiO2, saturations are 99%. Respiratory rate is 12, set on the ventilat or. She is over breathing. She is afebrile. End-tidal CO2 is 28. ICP is 15. HEENT: Remarkable f or dressings, drains, ventriculostomy, oral endotracheal tube and OG tube all being in place. Pupils are small and equal, poorly reactive. She does have an apparent gag. There is no jugular venous di stention. CHEST: Clear anteriorly. Breath sounds are diminished at the bases. HEART: Regular in rate and rhythm without significant murmur or gallop. ABDOMEN: Soft. Tenderness cannot be assessed . Bowel sounds are diminished, but present. : A Schofield catheter is in place. She is making good urine. EXTREMITIES: Unremarkable for edema. She will withdrawal weekly and/or posture to noxious s timulation. DATABASE: CT scans are as noted above. Chest x-ray shows central line to be in good position. There is no consolidation. Some basilar atel ectasis or early infiltrate on the right side cannot be excluded. LABORATORY: Arterial blood gas shows a pH 7.37, pCO2 34, and PO2 157 on 50% FiO2, rate of 12, tidal volume of 400 and a PEEP of 5. White blood cell count is 13,000, hematocrit 28.2, down from 37 on ad mission. Platelets 313,000. PT was 14 with a PTT of 28 on admission. Sodium is 146, potassium 4.1, chloride 118, CO2 20, BUN 13 with creatinine 0.6. Glucose is 193, calcium 9.8. Liver function stud ies are normal. Albumin is 2.9. ASSESSMENT: 1. Large frontotemporal intraparenchymal hemorrhage. She is status post craniotomy with evacuation of the initial hemorrhage, decompression, and hemicraniectomy. She has re-bled, but shift and hernia tion have resolved. Neurologic prognosis may be poor as a result of this devastating hemorrhage. Fa venecia members and her fiancee request aggressive supportive care at this time and maximum efforts to p rolong the patient's life and neurologic function. 2. Respiratory failure. Secondary to large frontotemporal intraparenchymal hemorrhage. Appropriate ventilatory management is in place. Arterial blood gas looks excellent. Aspiration cannot be ruled out. She does have right lower lung atelectasis and/or infiltrate, possibly consistent with aspirat ion. Sputum culture will be obtained. Ertapenem will be prescribed. 3. History of coronary artery disease, on anti-platelet agents secondary to recent stenting. She di d receive platelets. 4. Hypertension. The patient was hypertensive on admission. Blood pressures have now normalized an d pressor therapy with dopamine and Leobardo-Synephrine to keep mean arterial pressures approximately 65. 5. Seizure prophylaxis: On Keppra. 6. Elevated blood sugar: Sliding scale insulin will be prescribed. 7. Prophylaxis: Sequential compression devices, famotidine. PLAN AND RECOMMENDATIONS: The patient will be supported aggressively. Appropriate ventilatory suppo rt will be maintained. Blood pressure will be controlled as indicated. She is currently on dopamine and Leobardo-Synephrine. If blood pressure rises, nicardipine would be needed. Keppra will be continued . Hypertonic saline will be continued, aiming for a sodium of approximately 150. Urine output and s odiums will be followed closely, as she is at risk for diabetes insipidus. A sputum culture will be obtained. Ertapenem will be ordered for possible aspiration pneumonia. Glucoses will be followed an d insulin given per sliding scale coverage q.6 hours. Sedation with propofol as needed and fentanyl if needed will be given. Further plans and recommendations will be made based on her progress over the next 12-24 hours. Over 1 hour of critical care time was spent directly with the patient. Discussed with Respiratory, Sabrina parr, and the patient's fiancee and family members. /[id number]/MODL
--- NOTE | 2018-10-23 16:14 | ASMTCMCOM ---
CM Note CM Note Notes: CM worked with Spiritual Care to coordinate Family meeting with Dr. Ramsey Odonnell and RN, Reyna to discuss pt's needs and assign Health Care Proxy. All parties agreed that Vee's sister, Genie Fernandez ([phone]) would be the best person to be Health Care Proxy and signed the form. CM provided copy to Genie and placed copy in chart. Family involved in this meeting were: Close family: Frank MorenoMaritza (Fiance), Erwin "Derick"Justino (Son), Daniel Badillo (son), Carlos Badillo (ex-), Genie Fernandez (sister), Viv (Lorelee) Yakelin (sister), Osvaldo Donald (brother via phone) as well as various other family members: Michelle Medina, Natalia Fernandez, Emerita Fernandez, Jose Mccormick, and Wesley Fernandez. MD answered questions and concerns and encouraged family to reach out to staff for questions and for support. CM to follow to provide emotional support and help coordinate care. Date Signed: 10/23/2018 04:11 PM Electronically Signed By:EVANGELINA Blank
[2018-10-24] MEDS: INSULIN REGULAR HUMAN 100 UNIT/ML UNIT SC SCH ×4 (00:20→18:28)
[2018-10-24 04:55] LABS: PLATELET COUNT 157 10^3/uL (150-400)
[2018-10-24 04:56] LABS: INR 1.32 (0.83-1.16); PROTIME(PATIENT) 15.8 SEC (12.0-15.0)
[2018-10-24] MEDS ORDERED: PROTOCOL CALCIUM 1 DOSE IV PRN (05:14)
[2018-10-24] MEDS ORDERED: PROTOCOL POTASSIUM 1 DOSE MISC PRN (05:14)
[2018-10-24] MEDS ORDERED: PROTOCOL K PHOSPHATE 1 DOSE IV PRN (05:14)
[2018-10-24] MEDS ORDERED: PROTOCOL MAGNESIUM 1 DOSE IV PRN (05:14)
[2018-10-24] MEDS: PETROLAT,WHT/MIN OIL/SOD CHL 3.5 GM OPHT.OINT EACHEYE SCH ×3 (05:23→17:45)
[2018-10-24] MEDS: fentaNYL/NACL 100 ML IV SCH (05:27)
[2018-10-24] MEDS: POTASSIUM Cl (KCl) 50 ML IV SCH ×8 (05:28→23:05)
[2018-10-24] MEDS: niCARdipine/NACL 200 ML IV PRN ×3 (08:13→17:45)
[2018-10-24] MEDS: levETIRAcetam 500MG/NACL 100 ML IV SCH ×2 (08:13→21:05)
[2018-10-24] MEDS: ERTAPENEM 1 GM in NS 100 ML IV SCH (08:13)
[2018-10-24] MEDS: FAMOTIDINE 20 MG/NACL 50 ML IV SCH ×2 (08:13→21:34)
[2018-10-24] MEDS: SENNOSIDES 17.6 MG/10 ML UDL TUBE SCH ×2 (08:13→21:08)
--- NOTE | 2018-10-24 08:29 | PDINTPN ---
Staff Air Tactical Officer Progress Note Assessment/Plan: Assessment/plan: * Large frontotemporal intraparenchymal hemorrhage-status post craniotomy with evacuation of hemorrhage, decompression and heavy craniectomy. * Acute respiratory failure- secondary to above. Stable on mechanical ventilation -no weaning for now. * Atelectasis-possible aspiration -on ertapenem * Controlled hypernatremia-remains on hypertonic saline * Coronary artery disease * Anemia-sizable drop in H&H. -follow-up for now. Will transfuse if appropriate. * Hypertension-now on nicardipine -keep systolic BP less than 140 * Hyperglycemia -continue aggressive blood sugar control * Seizure per cautions-on Keppra * VT prophylaxis-holding anticoagulation for now. * Stress ulcer prophylaxis * Prognosis-grim for meaningful recovery -will discuss with family Subjective: Coma Objective: Vital Signs Temp Pulse Resp BP Pulse Ox 36.8 C 85 17 135/72 H 100 10/24/18 08:00 10/24/18 08:22 10/24/18 08:22 10/24/18 08:00 10/24/18 08:22 Laboratory Results 10/24/18 04:30 10/24/18 04:30 10/23/18 10/24/18 10/25/18 05:59 05:59 05:59 Intake Total 2729 4149 Output Total 2797 3656 7 Balance -68 493 -7 PT 15.8 SEC (12.0-15.0) H 10/24/18 04:30 INR 1.32 (0.83-1.16) H 10/24/18 04:30 Laboratory Results 10/24/18 04:30 10/24/18 04:30 10/24/18 10/24/18 10/24/18 05:40 04:30 04:30 Patient Temperature 37.0 DEGREES DEGREES pCO2 34 mmHg mmHg (34 - 38) pO2 121 mmHg H mmHg (65 - 75) Total CO2 21 mEq/L L mEq/L (23 - 27) ABG pH 7.39 (7.35 - 7.45) ABG HCO3 20 mEq/L L mEq/L (22 - 26) ABG O2 Saturation 99 % H % (92 - 95) ABG Base Excess -3.7 mEq/L L mEq/L (-2.5 - 2.5) Calcium 8.0 mg/dL L mg/dL (8.5 - 10.4) Ionized Calcium 1.19 MMOL/L MMOL/L (1.12 - 1.30) Magnesium 2.2 mg/dL mg/dL (1.6 - 2.3) Total Bilirubin 0.4 mg/dL mg/dL (0.1 - 1.4) AST 48 IU/L H IU/L (14 - 46) ALT 33 IU/L IU/L (9 - 52) Alkaline Phosphatase 49 IU/L IU/L (38 - 126) Total Protein 4.8 g/dL L g/dL (6.3 - 8.2) Albumin 2.4 g/dL L g/dL (3.5 - 5.0) Chest x-ray by myself. Endotracheal tube in good position. Central line in good position. - Time Spent With Patient Time Spent With Patient: 45 min of critical care time spent with patient. Case discussed with Nursing and Respiratory therapy Physical Exam - Physical Exam General Appearance: unresponsive, other (Coma), No alert EENT: ET tube Neck: non-tender Respiratory: crackles (Few basilar), No respiratory distress, No wheezing Cardiac/Chest: normal peripheral pulses, regular rate, rhythm Abdomen: normal bowel sounds, non-tender, soft Pelvic Exam: deferred Rectal: deferred Skin: normal color, warm/dry Extremities: non-tender Neuro/Psych: No alert ICD10 Worksheet Patient Problems: Problems Problem Status Onset Hemorrhagic stroke Acute
--- NOTE | 2018-10-24 08:47 | NEUSURGPN ---
Date of Surgery: 10/22/18 Post Op Day: 2 Assessment/Plan: Assessment: 63 yr old female status post right hemicraniectomy POD #2 Post op CTH shows that she has rebled into the operative bed, but mass effect is slightly improved Plan: -Post op CTH shows that she has rebled into the operative bed, but mass effect is slightly improved -SUSANNE to bulb suction -Continue EVD, ICPs 14 this am -Na 158 this am, 3% on hold Discussed patient with Dr Enrique Subjective: Sedated, intubated. No new events overnight Objective: Withdraws to painful stim in bilateral upper and lower extremities Pupils 3mm on right, 2mm on left sluggish Neuro Check Frequency: per routine Urinary Catheter in Place: Yes Urinary Catheter Indication: Other (Use Comment) (intuabted) Catheter Insertion Date: 10/22/18 - Physician Discussed Patient with : [facility] Physical Exam - Vitals, I&O, Labs I and O 10/23/18 10/24/18 10/25/18 05:59 05:59 05:59 Intake Total 2729 4149 Output Total 2797 3656 7 Balance -68 493 -7 Weight 63 kg Intake: Oral (ml) 30 IV Infused (ml) 2599 4119 DOPamine/DEXTROSE 250 ml 95 257 @ Titrate IV CONT REJI Rx# :[id number] NS W/ 20 KCl/L 1,000 ml @ 882 2516 100 mls/hr IV CONT REJI Rx#:[id number] Phenylephrine HCl 50 mg 231 409 In D5w 250 ml @ Titrate IV CONT REJI Rx#: [id number] Propofol/Emulsion 100 ml 12 13 @ Titrate IV CONT REJI Rx# :[id number] SODIUM Cl 3% 500 ml @ 40 360 875 mls/hr IV CONT REJI Rx#: [id number] fentaNYL/NACL 100 ml @ As 19 49 Directed IV CONT REJI Rx# :[id number] Tube Flush (ml) 30 Platelets (ml) 100 Output: Urine (ml) 2525 3488 Catheter 1725 3488 OG Tube Output (ml) 100 50 Large Bore (>12 Arabic) 100 50 Stomach CSF Drainage Amount 50 33 7 Right Ventriculostomy 50 33 7 SUSANNE Drain Output (ml) 122 85 #1 Right Temporal 122 85 Other: Output Comment Catheter notified Vital Signs Temp Pulse Resp BP Pulse Ox 36.8 C 85 17 135/72 H 100 10/24/18 08:00 10/24/18 08:22 10/24/18 08:22 10/24/18 08:00 10/24/18 08:22 Laboratory Results 10/24/18 04:30 10/24/18 04:30 ICD10 Worksheet Patient Problems: Problems Problem Status Onset Hemorrhagic stroke Acute
--- NOTE | 2018-10-24 09:27 | HOSPPROG ---
Hospitalist Progress Note Assessment/Plan: 63 yo F with PMH of CAD s/p recent stent x 2 presented after being found down in bathroom with AMS, found to have large intraparenchymal bleed. #IPH w/midline shift and herniation s/p R hemicraniectomy - Repeat CT shows rebleed into operative bed but less shift. Remains obtunded on vent, withdraws minimally to painful stimuli. - EVD and SUSANNE in place - neurosurgery following - keep SBP <140 #Hypernatremia - induced per neurosurg - 3% NaCl on hold for Na 158 - cont to trend q6h Na - monitor for signs of DI, currently uop a bit low #Seizure - cont keppra #Hypotension - improved, off pressors - now requiring cardene to keep sbp <140 #Acute hypoxemic respiratory failure - Intubated for airway protection - vent per pulm - sedated on low dose fentanyl, no propofol #CAD: RCA stent 10/20/18, LAD stent 09/2018. - Holding anti-platelets due to ICH #Acute blood loss anemia - Monitor #Hyperglycemia: stress response - SSI #Prognosis: neurosurg and pulm have discussed grim prognosis with family #DVT PPLX: SCD's, no pharm with ICH Code: full #Dispo: cont ICU, pt is critically ill, high risk for decompensation. Discussed with swimming pool servicer and care team at multidisciplinary rounds 30 min crit care Subjective: Pt vented, sedated, withdraws to significant painful stimuli, minimal spontaneous, non-purposeful movement Objective: Vital Signs Temp Pulse Resp BP Pulse Ox 36.8 C 85 17 135/72 H 100 10/24/18 08:00 10/24/18 08:22 10/24/18 08:22 10/24/18 08:00 10/24/18 08:22 Laboratory Results 10/24/18 04:30 10/24/18 04:30 10/23/18 10/24/18 10/25/18 05:59 05:59 05:59 Intake Total 2729 4149 Output Total 4257 3656 7 Balance -68 493 -7 PT 15.8 SEC (12.0-15.0) H 10/24/18 04:30 INR 1.32 (0.83-1.16) H 10/24/18 04:30 - Physical Exam Constitutional: no apparent distress Eyes: other (pupils 2 mm, fixed, left pupil with sl deviated gaze) Ears, Nose, Mouth, Throat: moist mucous membranes Cardiovascular: regular rate and rhythym Respiratory: no respiratory distress Gastrointestinal: normoactive bowel sounds, soft, non-tender abdomen Skin: warm Neurologic: other (sedated on sm amt of fentanyl only, brief non-purposeful spontaneous movement of RLE, o/w withdraws to painful stimuli only) ICD10 Worksheet Patient Problems: Problems Problem Status Onset Hemorrhagic stroke Acute
[2018-10-24] MEDS: NS W/ 20 KCl/L 1,000 ML IV SCH (17:44)
[2018-10-24] MEDS ORDERED: NS BOLUS 1000 ML (Wide open) IV ONE (18:00)
[2018-10-24] MEDS ORDERED: METOPROLOL TARTRATE 5 MG/5 ML INJ IVP ONE (20:43)
[2018-10-25] MEDS: PETROLAT,WHT/MIN OIL/SOD CHL 3.5 GM OPHT.OINT EACHEYE SCH ×4 (00:46→20:11)
[2018-10-25] MEDS: INSULIN REGULAR HUMAN 100 UNIT/ML UNIT SC SCH ×4 (00:46→20:11)
[2018-10-25] MEDS ORDERED: POTASSIUM Cl (KCl) 50 ML IV ONE ×2 (01:21→06:03)
[2018-10-25] MEDS ORDERED: METOPROLOL TARTRATE 5 MG/5 ML INJ IVP ONE (03:21)
[2018-10-25] MEDS: niCARdipine/NACL 200 ML IV PRN ×3 (07:24→21:31)
--- NOTE | 2018-10-25 07:25 | NEUSURGPN ---
Date of Surgery: 10/22/18 Post Op Day: 3 Assessment/Plan: Assessment: 63 yr old female status post right hemicraniectomy POD #3 Post op CTH shows that she has rebled into the operative bed, but mass effect is slightly improved Plan: -Post op CTH shows that she has rebled into the operative bed, but mass effect is slightly improved -SUSANNE to bulb suction -Continue EVD, ICPs 13-15 this am -Na 159 this am, 3% on hold -Patient with EKG changes, appreciate Medicine management for this -Patient has been off all sedation since yesterday, withdrawls to painful stimuli in all extremities Discussed patient with Dr Enrique Subjective: Intubated, chart reviewed Objective: Intubated Withdrawls to painful stimuli in all extremities OU 1mm, non reactive Head wrap in place SUSANNE patent EVD in place Neuro Check Frequency: per routine Urinary Catheter in Place: Yes Urinary Catheter Indication: Other (Use Comment) (intubated) Catheter Insertion Date: 10/22/18 - Physician Discussed Patient with : [facility] Physical Exam - Vitals, I&O, Labs I and O 10/24/18 10/25/18 10/26/18 05:59 05:59 05:59 Intake Total 4149 4103 Output Total 3656 3032 2 Balance 493 1071 -2 Intake: IV Intake (ml) 1000 IV Infused (ml) 4119 3009 DOPamine/DEXTROSE 250 ml 257 @ Titrate IV CONT REJI Rx# :[id number] NS W/ 20 KCl/L 1,000 ml @ 2516 1395 100 mls/hr IV CONT REJI Rx#:[id number] NS W/ 20 KCl/L 1,000 ml @ 1015 100 mls/hr IV CONT REJI Rx#:[id number] Phenylephrine HCl 50 mg 409 In D5w 250 ml @ Titrate IV CONT REJI Rx#: [id number] Propofol/Emulsion 100 ml 13 @ Titrate IV CONT REJI Rx# :[id number] SODIUM Cl 3% 500 ml @ 40 875 mls/hr IV CONT REJI Rx#: [id number] fentaNYL/NACL 100 ml @ As 49 34 Directed IV CONT REJI Rx# :[id number] niCARdipine/NACL 200 ml @ 565 Titrate IV PRN PRN Rx#: [id number] Tube Flush (ml) 30 Packed Red Blood Cells ( 94 ml) Output: Urine (ml) 3488 2830 Catheter 3488 2830 OG Tube Output (ml) 50 50 Large Bore (>12 Colombian) 50 50 Stomach CSF Drainage Amount 33 67 2 Right Ventriculostomy 33 67 2 SUSANNE Drain Output (ml) 85 85 #1 Right Temporal 85 85 Other: Output Comment Catheter notified Vital Signs Temp Pulse Resp BP Pulse Ox 37.5 C 105 H 22 H 131/84 H 100 10/25/18 06:00 10/25/18 06:00 10/25/18 06:00 10/25/18 06:00 10/25/18 06:00 Laboratory Results 10/25/18 04:00 10/25/18 04:00 ICD10 Worksheet Patient Problems: Problems Problem Status Onset Hemorrhagic stroke Acute
--- NOTE | 2018-10-25 08:29 | PDINTPN ---
Natural Developer Progress Note Assessment/Plan: Assessment/plan: * Large frontotemporal intraparenchymal hemorrhage-status post craniotomy with evacuation of hemorrhage, decompression and heavy craniectomy. * Acute respiratory failure- secondary to above. Stable on mechanical ventilation -not weanable. * Atelectasis-possible aspiration -on ertapenem * Mental status-withdrawals to pain. Minimal change in last 48 hr. * Controlled hypernatremia-remains on hypertonic saline * Coronary artery disease * Anemia-sizable drop in H&H. -follow-up for now. Will transfuse if appropriate. * Hypertension-now on nicardipine -keep systolic BP less than 140 * Hyperglycemia -continue aggressive blood sugar control * Seizure per cautions-on Keppra * VT prophylaxis-holding anticoagulation for now. * Stress ulcer prophylaxis * Prognosis-grim for meaningful recovery -will discuss again with the family regarding poor prognosis, as well as end of life issues Subjective: Coma. Objective: Vital Signs Temp Pulse Resp BP Pulse Ox 37.6 C 113 H 22 H 122/76 H 100 10/25/18 08:00 10/25/18 08:00 10/25/18 08:00 10/25/18 08:00 10/25/18 08:00 Laboratory Results 10/25/18 04:00 10/25/18 04:00 10/24/18 10/25/18 10/26/18 05:59 05:59 05:59 Intake Total 4149 4103 Output Total 3656 3032 8 Balance 493 1071 -8 PT 15.8 SEC (12.0-15.0) H 10/24/18 04:30 INR 1.32 (0.83-1.16) H 10/24/18 04:30 Laboratory Results 10/25/18 04:00 10/25/18 04:00 10/25/18 10/25/18 04:00 04:00 Serum Osmolality 340 mosmo/kg H mosmo/kg (280 - 297) Calcium 8.2 mg/dL L mg/dL (8.5 - 10.4) Ionized Calcium 1.25 MMOL/L MMOL/L (1.12 - 1.30) Phosphorus 1.7 mg/dL L mg/dL (2.5 - 4.5) Magnesium 2.5 mg/dL H mg/dL (1.6 - 2.3) - Time Spent With Patient Time Spent With Patient: 35 min of critical care time spent with patient. Case discussed with Nursing and Respiratory therapy Physical Exam - Physical Exam General Appearance: obtunded, No alert EENT: PERRL/EOMI, ET tube Neck: non-tender Respiratory: rhonchi (Bibasilar), No respiratory distress, No wheezing Cardiac/Chest: normal peripheral pulses, regular rate, rhythm, tachycardia Abdomen: normal bowel sounds, non-tender, soft Pelvic Exam: deferred Rectal: deferred Skin: normal color, warm/dry Extremities: non-tender Neuro/Psych: No alert ICD10 Worksheet Patient Problems: Problems Problem Status Onset Hemorrhagic stroke Acute
--- NOTE | 2018-10-25 08:49 | HOSPPROG ---
Hospitalist Progress Note Assessment/Plan: 63 yo F with PMH of CAD s/p recent stent x 2 presented after being found down in bathroom with AMS, found to have large intraparenchymal bleed. #IPH w/midline shift and herniation s/p R hemicraniectomy POD #3 - Repeat CT shows rebleed into operative bed but less shift. Remains obtunded on vent off sedation, withdraws minimally to painful stimuli. - EVD and SUSANNE in place - neurosurgery following - keep SBP <140 #Hypernatremia - induced per neurosurg - 3% NaCl on hold for Na 158 - cont to trend q6h Na - monitor for signs of DI, currently uop a bit low #Seizure - cont keppra #Hypotension - improved, off pressors - now requiring cardene to keep sbp <140 #Acute hypoxemic respiratory failure - Intubated for airway protection - vent per pulm - sedated on low dose fentanyl, no propofol #CAD: RCA stent 10/20/18, LAD stent 09/2018. EKG changes noted, not a candidate for intervention - Holding anti-platelets due to ICH - cont BB as able #Acute blood loss anemia - hgb down to 6.8 - transfuse 1 u prbc's #Hyperglycemia: likely stress response - SSI #Prognosis: grim, family considering withdrawing care #DVT PPLX: SCD's, no pharm with ICH Code: now DNR Goals of care: per pulm's discussion with family, they are considering withdrawing care #Dispo: cont ICU, pt is critically ill, high risk for decompensation. Discussed with fashion adviser and care team at multidisciplinary rounds 30 min crit care Subjective: Pt is unresponsive on vent, no sedation. Objective: Vital Signs Temp Pulse Resp BP Pulse Ox 37.6 C 113 H 22 H 142/85 H 100 10/25/18 08:00 10/25/18 08:00 10/25/18 08:00 10/25/18 08:43 10/25/18 08:00 Laboratory Results 10/25/18 04:00 10/25/18 04:00 10/24/18 10/25/18 10/26/18 05:59 05:59 05:59 Intake Total 4149 4103 311 Output Total 3656 3032 8 Balance 493 1071 303 PT 15.8 SEC (12.0-15.0) H 05/20/19 04:30 INR 1.32 (0.83-1.16) H 10/24/18 04:30 - Physical Exam Constitutional: no apparent distress Eyes: other (pupils 2 mm, fixed gaze) Cardiovascular: regular rate and rhythym Respiratory: no respiratory distress Gastrointestinal: normoactive bowel sounds, soft, non-tender abdomen Skin: warm Neurologic: other (unresponsive off sedation, withdraws to painful stimuli, no other spontaneous movement) Psychiatric: encephalopathic ICD10 Worksheet Patient Problems: Problems Problem Status Onset Hemorrhagic stroke Acute
[2018-10-25] MEDS: levETIRAcetam 500MG/NACL 100 ML IV SCH ×2 (08:50→21:06)
[2018-10-25] MEDS: ERTAPENEM 1 GM in NS 100 ML IV SCH (08:51)
[2018-10-25] MEDS: FAMOTIDINE 20 MG/NACL 50 ML IV SCH ×2 (08:51→20:41)
[2018-10-25] MEDS: SENNOSIDES 17.6 MG/10 ML UDL TUBE SCH ×2 (08:52→21:07)
[2018-10-25] MEDS: METOPROLOL TARTRATE 5 MG/5 ML INJ IVP SCH ×3 (09:49→21:07)
[2018-10-25] MEDS ORDERED: K PHOS 10 MMOL in D5W 250 ML IV ONE (12:00)
[2018-10-25] MEDS: POTASSIUM Cl (KCl) 50 ML IV SCH ×6 (14:42→23:07)
[2018-10-25] MEDS: NS W/ 20 KCl/L 1,000 ML IV SCH (20:40)
[2018-10-26] MEDS: INSULIN REGULAR HUMAN 100 UNIT/ML UNIT SC SCH ×4 (00:10→18:03)
[2018-10-26] MEDS: PETROLAT,WHT/MIN OIL/SOD CHL 3.5 GM OPHT.OINT EACHEYE SCH ×5 (00:10→23:58)
[2018-10-26] MEDS: PHENYLEPHRINE HCL 50 MG in NS 250 ML IV SCH (01:06)
[2018-10-26] MEDS: POTASSIUM Cl (KCl) 50 ML IV SCH ×6 (01:56→11:04)
[2018-10-26] MEDS: METOPROLOL TARTRATE 5 MG/5 ML INJ IVP SCH ×5 (03:08→20:41)
--- NOTE | 2018-10-26 07:54 | SOAPPROG ---
SOAP Progress Note Assessment/Plan: Assessment/Plan: Assessment: 63 yr old female status post right hemicraniectomy POD #4 Post op CTH shows that she has rebled into the operative bed, but mass effect is slightly improved She continues to have poor neurologic exam. Family meeting to discuss further care options. She is DNR Plan: -Post op CTH shows that she has rebled into the operative bed, but mass effect is slightly improved -SUSANNE to bulb suction - 120 ml overnight -Continue EVD, ICPs 3 this am -Na 160 this am, 3% on hold -Patient with EKG changes, appreciate Medicine management for this -Patient has been off all sedation since yesterday, withdraws to painful stimuli in all extremities Discussed patient with Dr Enrique Subjective: Intubated, not on sedation. No events overnight per RN Objective: Intubated Withdraws to painful stimuli in all extremities Pupils = non reactive. Downward right gaze +Corneals, + cough [place] soft SUSANNE patent EVD in place and functional. Incision: CDI 10/26/18 07:54 10/26/18 07:54 Objective: Vital Signs Temp Pulse Resp BP Pulse Ox 37.5 C 87 20 138/81 H 100 10/26/18 07:00 10/26/18 07:00 10/26/18 07:00 10/26/18 07:00 10/26/18 07:00 Laboratory Results 10/26/18 05:21 10/26/18 05:21 10/25/18 10/26/18 10/27/18 05:59 05:59 05:59 Intake Total 4103 3356 Output Total 3032 2133 9 Balance 1071 1223 -9 PT 15.8 SEC (12.0-15.0) H 10/24/18 04:30 INR 1.32 (0.83-1.16) H 10/24/18 04:30 ICD10 Worksheet Patient Problems: Problems Problem Status Onset Hemorrhagic stroke Acute
--- NOTE | 2018-10-26 08:36 | PDINTPN ---
Radar Systems Engineer Progress Note Assessment/Plan: Assessment/plan: * Large frontotemporal intraparenchymal hemorrhage-status post craniotomy with evacuation of hemorrhage, decompression and hemicraniectomy. * Acute respiratory failure- secondary to above. Stable on mechanical ventilation -not weanable. * Atelectasis-possible aspiration -on ertapenem * Mental status-withdrawals to pain. No change overall * Controlled hypernatremia-remains on hypertonic saline * Coronary artery disease * Anemia-hemoglobin hematocrit stable post transfusion * Hypertension-now on nicardipine -keep systolic BP less than 140 * Hyperglycemia -continue aggressive blood sugar control * Seizure per cautions-on Keppra * VT prophylaxis-holding anticoagulation for now. * Stress ulcer prophylaxis * Code status-patient now do not resuscitate * Prognosis-grim for meaningful recovery -will discuss again with the family today regarding withdrawal of support -donor [place] to see today Subjective: Coma Objective: Vital Signs Temp Pulse Resp BP Pulse Ox 37.6 C 76 20 114/77 100 10/26/18 08:00 10/26/18 08:00 10/26/18 08:00 10/26/18 08:00 10/26/18 08:00 Laboratory Results 10/26/18 05:21 10/26/18 05:21 10/25/18 10/26/18 10/27/18 05:59 05:59 05:59 Intake Total 4103 3356 Output Total 3032 2133 177 Balance 1071 1223 -177 PT 15.8 SEC (12.0-15.0) H 10/24/18 04:30 INR 1.32 (0.83-1.16) H 10/24/18 04:30 - Time Spent With Patient Time Spent With Patient: 35 min of critical care time spent with patient. Case discussed with Nursing, Respiratory therapy and family Physical Exam - Physical Exam General Appearance: alert, no apparent distress EENT: PERRL/EOMI Neck: non-tender, supple Respiratory: crackles (Few basilar), No respiratory distress, No wheezing Cardiac/Chest: normal peripheral pulses, regular rate, rhythm, tachycardia Abdomen: normal bowel sounds, non-tender, soft Pelvic Exam: deferred Rectal: deferred Skin: normal color, warm/dry Extremities: normal inspection Neuro/Psych: No alert ICD10 Worksheet Patient Problems: Problems Problem Status Onset Hemorrhagic stroke Acute
[2018-10-26] MEDS: FAMOTIDINE 20 MG/NACL 50 ML IV SCH ×2 (08:53→20:41)
[2018-10-26] MEDS: ERTAPENEM 1 GM in NS 100 ML IV SCH (08:53)
[2018-10-26] MEDS: SENNOSIDES 17.6 MG/10 ML UDL TUBE SCH (08:54)
[2018-10-26] MEDS: levETIRAcetam 500MG/NACL 100 ML IV SCH ×2 (09:49→21:10)
--- NOTE | 2018-10-26 11:37 | HOSPPROG ---
Hospitalist Progress Note Assessment/Plan: 63 yo F with PMH of CAD s/p recent stent x 2 presented after being found down in bathroom with AMS, found to have large intraparenchymal bleed. #IPH w/midline shift and herniation s/p R hemicraniectomy POD #3 - Repeat CT shows rebleed into operative bed but less shift. Remains obtunded on vent off sedation, withdraws minimally to painful stimuli. - EVD and SUSANNE in place - neurosurgery following - keep SBP <140, now off cardene #Hypernatremia - induced per neurosurg - 3% NaCl on hold - cont to trend - monitor for signs of DI, currently uop a bit low #Seizure - cont keppra #Hypotension - improved, off pressors #Acute hypoxemic respiratory failure - Intubated for airway protection - vent per pulm - sedated on low dose fentanyl, no propofol #CAD: RCA stent 10/20/18, LAD stent 09/2018. EKG changes noted, not a candidate for intervention - Holding anti-platelets due to ICH - cont BB as able #Acute blood loss anemia - hgb down to 6.8 - transfused 1 u prbc's 10/26 #Hyperglycemia: likely stress response - SSI #Prognosis: grim, family considering withdrawing care #DVT PPLX: SCD's, no pharm with ICH Code: now DNR Goals of care: per pulm's discussion with family, they are considering withdrawing care #Dispo: cont ICU, pt is critically ill, high risk for decompensation. Discussed with box coverer hand and care team at multidisciplinary rounds 30 min crit care Subjective: Pt remains unresponsive without purposeful movement off all sedation Objective: Vital Signs Temp Pulse Resp BP Pulse Ox 37.8 C 84 17 133/92 H 100 10/26/18 11:00 10/26/18 11:00 10/26/18 11:00 10/26/18 11:00 10/26/18 11:00 Laboratory Results 10/26/18 05:21 10/26/18 05:21 10/25/18 10/26/18 10/27/18 05:59 05:59 05:59 Intake Total 4103 3356 Output Total 3032 2133 359 Balance 1071 1223 -359 PT 15.8 SEC (12.0-15.0) H 10/24/18 04:30 INR 1.32 (0.83-1.16) H 10/24/18 04:30 - Physical Exam Constitutional: no apparent distress Eyes: other (2 mm fixed b/l with disconjugate gaze) Ears, Nose, Mouth, Throat: moist mucous membranes Cardiovascular: regular rate and rhythym Respiratory: no respiratory distress Gastrointestinal: normoactive bowel sounds, soft, non-tender abdomen Skin: warm Neurologic: other (unresponsive, no purposeful movement, withdraws to painful stimuli) ICD10 Worksheet Patient Problems: Problems Problem Status Onset Hemorrhagic stroke Acute
[2018-10-26] MEDS ORDERED: PROTOCOL MAGNESIUM 1 DOSE IV PRN (20:35)
[2018-10-26] MEDS ORDERED: PROTOCOL K PHOSPHATE 1 DOSE IV PRN (20:35)
[2018-10-26] MEDS ORDERED: PROTOCOL CALCIUM 1 DOSE IV PRN (20:35)
[2018-10-26] MEDS ORDERED: PROTOCOL POTASSIUM 1 DOSE MISC PRN (20:35)
[2018-10-26] MEDS: NS W/ 20 KCl/L 1,000 ML IV SCH (22:13)
[2018-10-27] MEDS: INSULIN REGULAR HUMAN 100 UNIT/ML UNIT SC SCH ×2 (00:08→06:35)
[2018-10-27] MEDS: POTASSIUM Cl (KCl) 50 ML IV SCH ×3 (01:09→02:41)
[2018-10-27] MEDS: METOPROLOL TARTRATE 5 MG/5 ML INJ IVP SCH ×2 (03:49→10:13)
[2018-10-27] MEDS: PETROLAT,WHT/MIN OIL/SOD CHL 3.5 GM OPHT.OINT EACHEYE SCH (06:34)
--- NOTE | 2018-10-27 08:14 | NEUSURGPN ---
Date of Surgery: 10/22/18 Post Op Day: 5 Assessment/Plan: Assessment: 63 yr old female status post right hemicraniectomy POD #5 Post op CTH shows that she has rebled into the operative bed, but mass effect was slightly improved Plan: -Post op CTH shows that she has rebled into the operative bed, but mass effect was slightly improved -SUSANNE to bulb suction -Continue EVD, ICPs 11 this am -Na 163 this am, 3% on hold, sodium management not indicated at this time with stable ICPs -Patient has been off all sedation since yesterday, withdrawls to painful stimuli in all extremities -Comfort care discussions with at bedside Discussed patient with Dr Enrique Subjective: Intubated Objective: Intubated Withdraws to painful stimuli in all extremities Pupils = non reactive. Downward right gaze +Corneals, + cough [place] soft SUSANNE patent EVD in place and functional Incision: CDI Neuro Check Frequency: per routine Urinary Catheter in Place: Yes Urinary Catheter Indication: Other (Use Comment) (intubated, coma) Catheter Insertion Date: 10/22/18 - Physician Discussed Patient with Dr.: Enrique Neurosurgery Physical Exam - Vitals, I&O, Labs I and O 10/26/18 10/27/18 10/28/18 05:59 05:59 05:59 Intake Total 3356 2839 Output Total 2133 2547 76 Balance 1223 292 -76 Intake: IV Intake (ml) 226 IV Infused (ml) 3045 2613 NS W/ 20 KCl/L 1,000 ml @ 2526 2598 100 mls/hr IV CONT REJI Rx#:[id number] Phenylephrine HCl 50 mg 27 15 In Ns 250 ml @ Titrate IV CONT REJI Rx#:[id number] niCARdipine/NACL 200 ml @ 492 Titrate IV PRN PRN Rx#: [id number] Packed Red Blood Cells ( 311 ml) Output: Urine (ml) 2001 2125 60 Catheter 2001 2125 60 OG Tube Output (ml) 250 Large Bore (>12 Hungarian) 250 Stomach CSF Drainage Amount 96 132 16 Right Ventriculostomy 96 132 16 SUSANNE Drain Output (ml) 35 40 #1 Right Temporal 35 40 Vital Signs Temp Pulse Resp BP Pulse Ox 38.5 C H 68 23 H 117/66 100 10/27/18 08:00 10/27/18 08:00 10/27/18 08:00 10/27/18 08:00 10/27/18 08:00 Laboratory Results 10/27/18 06:15 10/27/18 06:50 ICD10 Worksheet Patient Problems: Problems Problem Status Onset Hemorrhagic stroke Acute
--- NOTE | 2018-10-27 08:18 | PDINTPN ---
Insurance Agency Sales Manager Progress Note Assessment/Plan: Assessment/plan: * Large frontotemporal intraparenchymal hemorrhage-status post craniotomy with evacuation of hemorrhage, decompression and hemicraniectomy. * Acute respiratory failure- secondary to above. Stable on mechanical ventilation -not weanable. * Atelectasis-possible aspiration -on ertapenem * Mental status-withdrawals to pain. No change overall * Hypernatremia -will start half normal saline * Coronary artery disease * Anemia-hemoglobin hematocrit stable post transfusion * Hypertension-now on nicardipine -keep systolic BP less than 140 * Hyperglycemia -continue aggressive blood sugar control * Seizure per cautions-on Keppra * VT prophylaxis-holding anticoagulation for now. * Stress ulcer prophylaxis * Code status-patient now do not resuscitate * Prognosis-grim for meaningful recovery -will discuss again with the family today regarding withdrawal of support Subjective: Coma Objective: Vital Signs Temp Pulse Resp BP Pulse Ox 38.5 C H 68 23 H 117/66 100 10/27/18 08:00 10/27/18 08:00 10/27/18 08:00 10/27/18 08:00 10/27/18 08:00 Laboratory Results 10/27/18 06:15 10/27/18 06:50 10/26/18 10/27/18 10/28/18 05:59 05:59 05:59 Intake Total 3356 2839 Output Total 2133 2547 76 Balance 1223 292 -76 PT 15.8 SEC (12.0-15.0) H 10/24/18 04:30 INR 1.32 (0.83-1.16) H 10/24/18 04:30 - Time Spent With Patient Time Spent With Patient: 35 min of critical care time spent with patient. Case discussed with Nursing, Respiratory therapy and family Physical Exam - Physical Exam General Appearance: alert, no apparent distress EENT: ET tube Neck: non-tender Respiratory: chest non-tender Cardiac/Chest: normal peripheral pulses, regular rate, rhythm Abdomen: normal bowel sounds, non-tender, soft Pelvic Exam: deferred Rectal: deferred Skin: normal color Extremities: normal inspection Neuro/Psych: No alert, No oriented x 3 ICD10 Worksheet Patient Problems: Problems Problem Status Onset Hemorrhagic stroke Acute
[2018-10-27] MEDS: ERTAPENEM 1 GM in NS 100 ML IV SCH (08:57)
[2018-10-27] MEDS: FAMOTIDINE 20 MG/NACL 50 ML IV SCH (09:00)
[2018-10-27] MEDS: levETIRAcetam 500MG/NACL 100 ML IV SCH (10:02)
--- NOTE | 2018-10-27 11:02 | SOAPPROG ---
DENA Progress Note Assessment/Plan: Long discussion with family regarding patient's extremely poor prognosis and end of life issues. It is their request that patient be made comfortable and all support be withdrawn this afternoon. They do not wish organ donation at this time, but are willing for tissue donation. We will abide by their wishes. Objective: Vital Signs Temp Pulse Resp BP Pulse Ox 38.2 C 58 L 21 H 106/64 100 10/27/18 10:00 10/27/18 10:13 10/27/18 10:00 10/27/18 10:13 10/27/18 10:00 Laboratory Results 10/27/18 06:15 10/27/18 06:50 10/26/18 10/27/18 10/28/18 05:59 05:59 05:59 Intake Total 3356 2839 Output Total 2133 2547 146 Balance 1223 292 -146 PT 15.8 SEC (12.0-15.0) H 10/24/18 04:30 INR 1.32 (0.83-1.16) H 10/24/18 04:30 ICD10 Worksheet Patient Problems: Problems Problem Status Onset Hemorrhagic stroke Acute
[2018-10-27] MEDS ORDERED: LORazepam 2 MG/ML INJ IVP PRN (11:03)
[2018-10-27] MEDS ORDERED: SCOPOLAMINE HYDROBROMIDE 1 MG/3 DAYS PATCH TD PRN (11:03)
--- NOTE | 2018-10-27 11:43 | HOSPPROG ---
Hospitalist Progress Note Assessment/Plan: 63 yo F with PMH of CAD s/p recent stent x 2 presented after being found down in bathroom with AMS, found to have large intraparenchymal bleed, no evidence of neurologic recovery. Family has decided to withdraw care. Will extubate today and provide comfort care measures, per pulm. #IPH w/midline shift and herniation s/p R hemicraniectomy POD #4 - Remains obtunded on vent off sedation #Hypernatremia - induced per neurosurg #Seizure - cont keppra to prevent seizure for comfort purposes #Hypotension - improved, off pressors #Acute hypoxemic respiratory failure - extubating today #CAD: RCA stent 10/20/18, LAD stent 09/2018. #Acute blood loss anemia - s/p 1 u prbcs #Comfort care planned, anticipate end of life within 24-48 hrs, will involve hospice if condition plateaus Subjective: Pt obtunded off sedation, no purposeful movement, withdraws to painful stimuli Objective: Vital Signs Temp Pulse Resp BP Pulse Ox 38.2 C 66 18 113/62 100 10/27/18 10:00 10/27/18 11:00 10/27/18 11:00 10/27/18 11:00 10/27/18 11:00 Laboratory Results 10/27/18 06:15 10/27/18 06:50 10/26/18 10/27/18 10/28/18 05:59 05:59 05:59 Intake Total 3356 2839 Output Total 2133 2547 150 Balance 1223 292 -150 PT 15.8 SEC (12.0-15.0) H 10/24/18 04:30 INR 1.32 (0.83-1.16) H 10/24/18 04:30 - Physical Exam Constitutional: no apparent distress Eyes: other (2 mm fixed pupils, sl deviated gaze) Ears, Nose, Mouth, Throat: moist mucous membranes Cardiovascular: regular rate and rhythym Respiratory: no respiratory distress Gastrointestinal: normoactive bowel sounds, soft, non-tender abdomen Skin: warm Neurologic: other (withdraws to painful stimuli, no purposeful movement) ICD10 Worksheet Patient Problems: Problems Problem Status Onset Hemorrhagic stroke Acute
[2018-10-27 12:04] VITALS: BP 119/70
[2018-10-27] MEDS ORDERED: levETIRAcetam 500MG/NACL 100 ML IV SCH (21:00)
--- NOTE | 2018-11-03 16:11 | CPEKG ---
Test Reason : OPEN Blood Pressure : / mmHG Vent. Rate : 116 BPM Atrial Rate : 116 BPM P-R Int : 093 ms QRS Dur : 083 ms QT Int : 435 ms P-R-T Axes : 096 -37 261 degrees QTc Int : 605 ms Sinus tachycardia Left axis deviation Abnormal T, consider ischemia, diffuse leads Prolonged QT interval Confirmed by Rj Valenzuela ([id number]) on 11/03/2018 4:11:24 PM Referred By: Aldo Enrique Confirmed By:Rj Valenzuela
--- NOTE | 2018-11-06 01:26 | GOP ---
[f rep st] OPERATIVE REPORT DATE OF OPERATION: 10/22/2018 SURGEON: Aldo Enrique MD PROPERTY INSURANCE INSPECTOR: Joe Cantrell, PAC. ANESTHESIA: GETA. PREOPERATIVE DIAGNOSIS: Large right temporal spontaneous hemorrhage with massive shift and uncal her niation. POSTOPERATIVE DIAGNOSIS: Large right temporal spontaneous hemorrhage with massive shift and uncal he rniation. PROCEDURE PERFORMED: A right-sided frontotemporoparietal decompressive hemicraniectomy with evacuati on of a right temporal intraparenchymal hemorrhage and placement of a ventriculostomy catheter. FINDINGS: Very swollen brain. SPECIMENS: Removed: None. ESTIMATED BLOOD LOSS: 100 cc. INDICATIONS: The patient is an unfortunate 63-year-old female. She recently had a cardiac stent becki saurabh and was placed on Plavix. She had been on Effient prior. She presented to the hospital today as a stroke alert. I presented promptly to the scene and discussed the case with her ex- and eunice christelle. They felt that her wishes would be to try aggressive surgical measures to save her life; so, she was consented for a right-sided decompressive and blood clot evacuation, and we took h er swiftly to the OR. The OR staff was readily available and aware of the case prior to my arrival. DESCRIPTION OF PROCEDURE: We took the patient emergently up from the emergency room to the operating theater and performed a sign-in. She was given appropriate IV antibiotic prophylaxis. She was give n Keppra and mannitol to reduce brain swelling and prevent seizures. A Schofield catheter was placed. A ppropriate IV access was obtained. An arterial line was placed. SCDs were placed for DVT. She was placed supine on the operating table with her head in a horseshoe head rest with the right side facin g upward. We shaved her hair on the right side and planned a reverse ? curvilinear incision extendin g from the hairline at the midpupillary line back to the parietal region, the posterior cheondoism region down by the ear and to the tragus in front of the right ear. Chlorhexidine shampoo was u sed to cleanse the scalp, and then ChloraPrep was used to perform sterile technique. A sterile field was created with blue towels, and Ioban, and a sterile surgical drape. Prior to the procedure, a ti me-out was performed. Everyone agreed to proceed. Local anesthetic was injected. A #15 scalpel was used to incise the skin dermis down to the cranium along the length of the incision and Fredis clips were used for hemostatic purposes. We dissected the temporalis muscle with Bovie electrocautery and flapped the myocutaneous flap forward, secured it with stitches hooked up to a Kerlix gauze. We plac ed a bur hole just above the zygoma at the keyhole and the posterior temporal region and then, used a craniotome to remove the bone flap. This will be stored for future purposes should she survive and need a cranioplasty. The field was irrigated with copious antibiotic solution. We opened up the dur a in a cruciate fashion with a #[address] to the bony edges. The brain was swollen and did not appear in good health. I then coagulated the saige near an area in the temporal lobe that look ed like it was near the blood clot, and then removed the blood clot with suction aspiration and force ps removal. After this blood clot was removed her brain did appear a bit more relaxed. Still appear ed to be quite damaged. We irrigated out the operative cavity with copious antibiotic solution, and performed hemostasis with bipolar electrocautery, and placed Surgicel along the operative bed. There was no bleeding at the end of the procedure. I, then, picked a location in the frontal lobe that wa s appropriate for ventriculostomy placement and cauterized the saige here as well and then, passed our ventriculostomy catheter until CSF was obtained. The ventriculostomy catheter was tunneled out of th e skin and had good flow during the procedure. We irrigated once more, and then flapped the dura brie k down and placed a #7 flat SUSANNE in the epidural space and tunneled this out as well. I flapped the du ra back down as well, and we proceeded with closure. We closed with 2-0 inverted Vicryl sutures and jorge for the skin. We secured our drainage tubes with a stitch and hooked the SUSANNE up to a bulb to full compression, and the EVD catheter to a drainage system. Drapes were removed. The skin was oni placido with a wet and dry sponge. A dressing was placed. The patient was returned to anesthesia, and lela aggarwal to the ICU. Orders were given directly from me to the nurses. I updated her family with the de tails of the procedure and gave them my grave prognosis, but they were grateful for the care she rece ived. IMPLANTS: None other than the drains placed. COMPLICATIONS: None. DRAINS: Right frontal ventriculostomy catheter and #7 flat SUSANNE drain to full bulb suction. /[id number]/MODL
== END 2018-10-28 03:16 | disposition expired | DRG 23 ==
LOC: EDUNIT# → F2N 21:12
PROVIDERS: ADMIT Neurological Surgery; ATTEND Neurological Surgery
PROC: 5A1955Z Respiratory Ventilation, Greater than 96 Consecutive Hours (ICD-10-PCS; 2018-10-22)
PROC: 0BH17EZ Insertion of Endotracheal Airway into Trachea, Via Natural or Artificial Opening (ICD-10-PCS; 2018-10-22)
PROC: 00C00ZZ Extirpation of Matter from Brain, Open Approach (ICD-10-PCS; principal; 2018-10-22 18:52)
PROC: 009600Z Drainage of Cerebral Ventricle with Drainage Device, Open Approach (ICD-10-PCS; principal; 2018-10-22 18:52)
DX: I61.9 Nontraumatic intracerebral hemorrhage, unspecified (principal); G93.5 Compression of brain; J96.01 Acute respiratory failure with hypoxia; E87.0 Hyperosmolality and hypernatremia; D62 Acute posthemorrhagic anemia; J98.11 Atelectasis; R40.2432 Glasgow coma scale score 3-8, at arrival to emergency department; I25.10 Atherosclerotic heart disease of native coronary artery without angina pectoris; G40.909 Epilepsy, unspecified, not intractable, without status epilepticus; Z51.5 Encounter for palliative care; Z66 Do not resuscitate; Z95.5 Presence of coronary angioplasty implant and graft
CPT/HCPCS: 82435-PO; 82565-PO; 82947-PO; 84132-PO; 84295-PO; 84484-ER; 84520-PO; 85014-ER; 96365; C1729; J0330; J0690; J0697; J1265; J1335; J1580; J1815; J1953; J2060; J2250; J2270; J2370; J2704; J3010; J3360; J3480; P9016; P9035; Q9967